=== PATIENT | male | born 1985 | race Caucasian/White ===

== ENCOUNTER 2024-12-02 04:46 | Emergency (ER) | payer OTHER ==
[~2024-12-02] VITALS: Ht 175.3 cm; Wt 77.1 kg
[2024-12-02] MEDS ORDERED: [UNRECOGNIZED DRUG - OTHER] (04:51)
[2024-12-02] MEDS ORDERED: GABAPENTIN (04:51)
[2024-12-02] MEDS ORDERED: LAMICTAL (04:51)
[2024-12-02] MEDS ORDERED: FLUORESCEIN SODIUM 1 MG STRIP ONE (05:00)
[2024-12-02] MEDS ORDERED: TETRACAINE HCL 0.5% OPHT DROP 2 ML BOTTLE ONE (05:00)
[2024-12-02] MEDS: FLUORESCEIN SODIUM 1 MG STRIP OP ONE (05:17)
[2024-12-02] MEDS: TETRACAINE HCL 0.5% OPHT DROP 2 ML BOTTLE OP ONE (05:18)
[2024-12-02] MEDS ORDERED: CIPR2.5D14 LEFTEYE (06:03)
[2024-12-02 06:16] VITALS: BP 124/63; TEMP 98.1; O2SAT 99
== END 2024-12-02 06:17 | disposition home or self-care (01) ==
LOC: ER 04:46
DX: S05.02XA Injury of conjunctiva and corneal abrasion without foreign body, left eye, initial encounter (principal); X58.XXXA Exposure to other specified factors, initial encounter; Y93.89 Activity, other specified; Y92.89 Other specified places as the place of occurrence of the external cause; Y99.8 Other external cause status
CPT/HCPCS: 99284; J7040; A4606; A4663